=== PATIENT | female | born 1970 | race Caucasian/White ===

== ENCOUNTER 2016-08-01 19:42 | Inpatient (IN) | payer OTHER ==
[~2016-08-01] VITALS: Ht 172.7 cm; Wt 49.9 kg
[~2016-08-01 19:42] MED LIST: CLON0.2T12 PO; DIVA500T2 PO; HYDR-548 PO; LORA2TAB PO; PHEN100C4 PO; QUET25TA3 PO
[2016-08-01] MEDS ORDERED: HYDROMORPHONE 1 MG/1 ML DISP.SYRIN IV ONE (21:00)
[2016-08-01] MEDS ORDERED: HYDROMORPHONE 1 MG/1 ML DISP.SYRIN ONE ×2 (21:46→23:21)
[2016-08-01] MEDS ORDERED: DEXTROSE 50% 50 ML DISP.SYRIN IV ONE (22:00)
[2016-08-01] MEDS ORDERED: DEXTROSE 50% 50 ML DISP.SYRIN ONE (22:07)
[2016-08-01 22:20] LABS: PHENOBARBITAL 58.2 ug/mL (15.0-39.0)
[2016-08-01] MEDS ORDERED: diphenhydrAMINE 50 MG/1 ML VIAL IM ONE (22:30)
[2016-08-01] MEDS ORDERED: diphenhydrAMINE 50 MG/1 ML VIAL ONE (22:32)
[2016-08-01] MEDS ORDERED: HYDROMORPHONE 1 MG/1 ML DISP.SYRIN IM ONE (23:15)
[2016-08-02] MEDS ORDERED: HYDR8TAB2 PO (00:21)
[2016-08-02] MEDS ORDERED: CALC-20 PO (00:21)
[2016-08-02] MEDS ORDERED: PHEN60TA11 PO (00:21)
[2016-08-02] MEDS ORDERED: BACL10TA PO (00:21)
[2016-08-02] MEDS ORDERED: DOXY100C41 PO (00:21)
[2016-08-02] MEDS ORDERED: LACT10SO6 PO (00:21)
[2016-08-02] MEDS ORDERED: IV NS 1000 ML 1,000 ML IV PRN (00:56)
[2016-08-02] MEDS ORDERED: ONDANSETRON 4 MG/2 ML VIAL IV PRN (01:00)
[2016-08-02] MEDS ORDERED: HYDROMORPHONE 1 MG/1 ML DISP.SYRIN IV PRN (01:00)
[2016-08-02] MEDS ORDERED: Z GUARD REMEDY PASTE 57 GM TUBE TOP PRN (01:00)
[2016-08-02] MEDS ORDERED: HYDROCODONE/APAP 5-325MG TABLET PO PRN (01:00)
[2016-08-02] MEDS ORDERED: MAGNESIUM HYDROXIDE 30 ML LIQUID UDC PO PRN (01:00)
[2016-08-02] MEDS ORDERED: ACETAMINOPHEN 325 MG TABLET PO PRN (01:00)
[2016-08-02] MEDS ORDERED: Medication Not On Formulary EA (Lactulose 30 ML) PO PRN (01:15)
[2016-08-02 02:12] VITALS: BP 109/71
[2016-08-02 02:23] LABS: *BILIRUBIN,URIN NEGATIVE (NEGATIVE); *BLOOD, URINE NEGATIVE (NEGATIVE); *CLARITY,URINE SLIGHTLY CLOUDY (CLEAR); *COLOR,URINE YELLOW (YELLOW); *KETONES,URINE NEGATIVE (NEGATIVE); *PROTEIN,URINE NEGATIVE (NEGATIVE); *UROBILINOGEN,URINE 0.2 E.U./dl (NORMAL); LEUKOCYTE ESTERASE ,URINE NEGATIVE (NEGATIVE); NITRITE, URINE NEGATIVE (NEGATIVE); UGLUCOSE TRACE (NEGATIVE)
[2016-08-02 02:25] LABS: BACTERIA,URINE FEW /HPF (NONE SEEN); RBC,URINE 0-3 /HPF (0-3); SQUAMOUS EPITHELIAL CELL,UR FEW /HPF (NONE SEEN); WBC,URINE 0-3 /HPF (0-3)
[2016-08-02] MEDS ORDERED: HYDROMORPHONE 1 MG/1 ML DISP.SYRIN ONE (05:41)
[2016-08-02] MEDS ORDERED: PANTOPRAZOLE SODIUM 40 MG TABLET.DR PO SCH (07:00)
[2016-08-02] MEDS ORDERED: Medication Not On Formulary EA (Calcium Carbonate/Vitamin D3 (Calcium + D 600 Mg Tablet) PO SCH (09:00)
[2016-08-02] MEDS ORDERED: BACLOFEN 10 MG TABLET PO SCH (09:00)
[2016-08-02] MEDS ORDERED: PHENYTOIN SODIUM EXTENDED 100 MG CAPSULE.SA PO SCH (09:00)
[2016-08-02] MEDS ORDERED: DIVALPROEX 500 MG TABLET.DR PO SCH (09:00)
[2016-08-02] MEDS ORDERED: CLONIDINE HCL 0.2 MG TABLET PO SCH (09:00)
== END 2016-08-02 04:20 | disposition left against medical advice (07) | DRG 812 ==
LOC: ER 19:46 → TELE 08-02 01:16
PROVIDERS: ADMIT Contractor; ATTEND Contractor
DX: T42.3X1A Poisoning by barbiturates, accidental (unintentional), initial encounter (principal); E16.2 Hypoglycemia, unspecified; Y92.009 Unspecified place in unspecified non-institutional (private) residence as the place of occurrence of the external cause; G89.4 Chronic pain syndrome; Z85.43 Personal history of malignant neoplasm of ovary; Z85.841 Personal history of malignant neoplasm of brain; Z87.891 Personal history of nicotine dependence; Z92.21 Personal history of antineoplastic chemotherapy; M25.532 Pain in left wrist; M79.642 Pain in left hand; M54.9 Dorsalgia, unspecified; W05.0XXA Fall from non-moving wheelchair, initial encounter; Y93.9 Activity, unspecified; Y92.9 Unspecified place or not applicable
CPT/HCPCS: 36415; 71010; 72110; 73110; 73130; 80164; 80184; 85025; 87077; 87086; A4663; J1170; J1200; J3490

== ENCOUNTER 2016-08-17 09:11 | Emergency (ER) | payer MEDICAID, OTHER ==
[~2016-08-17] VITALS: Ht 172.7 cm; Wt 53.5 kg
[~2016-08-17 09:11] MED LIST changes: +BACL10TA PO; +CALC-20 PO; +DOXY100C41 PO; -HYDR-548 PO; +HYDR8TAB2 PO; +LACT10SO6 PO; -LORA2TAB PO; +PHEN60TA11 PO; -QUET25TA3 PO
--- NOTE | 2016-08-17 09:46 | NUR ---
dr negron at the bedside for eval and exam.
[2016-08-17] MEDS ORDERED: ONDANSETRON 4 MG/2 ML VIAL IV ONE (10:00)
[2016-08-17] MEDS ORDERED: HYDROMORPHONE 1 MG/1 ML DISP.SYRIN IV ONE ×2 (10:00→10:45)
[2016-08-17] MEDS ORDERED: IV NORMAL SALINE 1000 ML BAG IV ONE ×2 (10:00→11:30)
[2016-08-17 10:17] LABS: BASOPHILS % (AUTO) 0.2 % (0.0-2.0); EOSINOPHILS % (AUTO) 1.2 % (0.0-7.0); HEMATOCRIT 37.6 % (37-47); HEMOGLOBIN 12.2 G/DL (12.0-16.0); LYMPHOCYTES # (AUTO) 1.7 K/UL (0.8-4.8); LYMPHOCYTES % (AUTO) 45.5 % (20.5-51.5); MEAN CORPUSCULAR HEMOGLOBIN 29.4 UUG (27.0-31.0); MEAN CORPUSCULAR HGB CONC 33 g/dL (32.0-37.0); MEAN CORPUSCULAR VOLUME 90.5 FL (81.0-99.0); MONOCYTES # (AUTO) 0.5 K/UL (0.1-1.30); MONOCYTES % (AUTO) 12.3 % (0.0-11.0); NEUTROPHILS # (AUTO) 1.5 K/UL (1.8-8.9); NEUTROPHILS % (AUTO) 40.8 % (38.5-71.5); PLATELET COUNT (AUTO) 194 K/UL (150-450); RED BLOOD CELL COUNT(AUTO) 4.16 MIL/UL (4.2-5.4); RED CELL DISTRIBUTION WIDTH 13.9 % (11.5-14.5); WHITE BLOOD COUNT (AUTO) 3.7 K/UL (4.0-11.2)
[2016-08-17 10:22] LABS: CALCIUM 8.5 mg/dL (8.5-10.1); CARBON DIOXIDE 29 mmol/L (21-32); CHLORIDE 107 mmol/L (98-107); GFR > 130 mL/min (>60); GLUCOSE 103 mg/dL (74-106); POTASSIUM 4.8 mmol/L (3.5-5.1); SODIUM SERUM 144 mmol/L (136-145); UREA NITROGEN, BLOOD 9 mg/dL (7-18)
[2016-08-17 10:23] LABS: CREATININE 0.5 mg/dL (0.6-1.3)
[2016-08-17] MEDS ORDERED: ONDANSETRON 4 MG/2 ML VIAL ONE ×2 (10:24→10:47)
[2016-08-17] MEDS ORDERED: HYDROMORPHONE 2 MG/1 ML DISP.SYRIN ONE ×3 (10:24→12:10)
[2016-08-17 10:28] LABS: ALANINE AMINOTRANSFERASE 29 U/L (14-59); ALBUMIN 3.2 g/dL (3.4-5.0); ALKALINE PHOSPHATASE 79 U/L (50-136); ASPARTATE AMINOTRANSFERASE 23 U/L (15-37); BILIRUBIN,DIRECT 0.1 mg/dL (0.0-0.2); BILIRUBIN,TOTAL 0.2 mg/dL (0.2-1.0); TOTAL PROTEIN, SERUM 6.8 g/dL (6.4-8.2)
[2016-08-17] MEDS ORDERED: ONDANSETRON IV *ER 4 MG/2 ML VIAL IV ONE (10:45)
[2016-08-17 10:47] LABS: EOSINOPHILS % (MANUAL) 1 % (0-8); LYMPHOCYTES % (MANUAL) 49 % (20-40); MONOCYTES % (MANUAL) 8 % (2-10); NEUTROPHILS % (MANUAL) 42 % (42-75); PLATELET ESTIMATE ADEQUATE
[2016-08-17 10:56] LABS: PHENYTOIN (DILANTIN) 14.1 ug/mL (10.0-20.0)
[2016-08-17 11:05] LABS: VALPROIC ACID 18 ug/mL (50-100)
[2016-08-17 11:07] LABS: PHENOBARBITAL 43.7 ug/mL (15.0-39.0)
[2016-08-17] MEDS ORDERED: HYDROMORPHONE 1 MG/1 ML DISP.SYRIN IM ONE (11:30)
--- NOTE | 2016-08-17 12:22 | NUR ---
IV removed. Catheter intact and site benign. Pressure and 4x4 gauze applied to site. No bleeding noted.
--- NOTE | 2016-08-17 12:24 | NUR ---
Patient discharged to home in stable conditon. Written and verbal after care instructions given. Patient verbalizes understanding of instructions.
[2016-08-17 12:25] VITALS: BP 110/67
== END 2016-08-17 12:25 | disposition home or self-care (01) ==
LOC: ER 09:11
DX: Z00.00 Encounter for general adult medical examination without abnormal findings (principal); I10 Essential (primary) hypertension; G40.909 Epilepsy, unspecified, not intractable, without status epilepticus; C71.9 Malignant neoplasm of brain, unspecified; F17.200 Nicotine dependence, unspecified, uncomplicated; F31.9 Bipolar disorder, unspecified; Z88.0 Allergy status to penicillin; Z88.6 Allergy status to analgesic agent; Z88.8 Allergy status to other drugs, medicaments and biological substances
CPT/HCPCS: 80048; 80076; 80164; 80184; 80185; 85025; 85730; 96361; 96372; 96374; 96375; 99284; A4663; J1170 ×3; J2405 ×2; J7030 ×2

== ENCOUNTER 2016-08-19 16:04 | Emergency (ER) | payer MEDICAID ==
[~2016-08-19] VITALS: Ht 170.2 cm; Wt 53.5 kg
[2016-08-19] MEDS ORDERED: HYDROMORPHONE 1 MG/1 ML DISP.SYRIN IM ONE ×2 (16:30→17:45)
[2016-08-19] MEDS ORDERED: HYDROMORPHONE 2 MG/1 ML DISP.SYRIN ONE (16:41)
[2016-08-19 16:57] LABS: BASOPHILS % (AUTO) 0.4 % (0.0-2.0); EOSINOPHILS % (AUTO) 1.2 % (0.0-7.0); HEMATOCRIT 39.5 % (37-47); HEMOGLOBIN 12.7 G/DL (12.0-16.0); LYMPHOCYTES # (AUTO) 1.5 K/UL (0.8-4.8); LYMPHOCYTES % (AUTO) 44.5 % (20.5-51.5); MEAN CORPUSCULAR HEMOGLOBIN 28.9 UUG (27.0-31.0); MEAN CORPUSCULAR HGB CONC 32 g/dL (32.0-37.0); MEAN CORPUSCULAR VOLUME 89.8 FL (81.0-99.0); MONOCYTES # (AUTO) 0.3 K/UL (0.1-1.30); MONOCYTES % (AUTO) 9.4 % (0.0-11.0); NEUTROPHILS # (AUTO) 1.4 K/UL (1.8-8.9); NEUTROPHILS % (AUTO) 44.5 % (38.5-71.5); PLATELET COUNT (AUTO) 192 K/UL (150-450); RED CELL DISTRIBUTION WIDTH 13.4 % (11.5-14.5); WHITE BLOOD COUNT (AUTO) 3.2 K/UL (4.0-11.2)
[2016-08-19 17:07] LABS: CALCIUM 8.8 mg/dL (8.5-10.1); CARBON DIOXIDE 30 mmol/L (21-32); CHLORIDE 107 mmol/L (98-107); GFR > 130 mL/min (>60); GLUCOSE 94 mg/dL (74-106); SODIUM SERUM 142 mmol/L (136-145); UREA NITROGEN, BLOOD 8 mg/dL (7-18)
--- NOTE | 2016-08-19 17:13 | NUR ---
Patient is resting comfortably in bed with eyes closed, NAD noted.
[2016-08-19 17:20] LABS: CREATININE 0.5 mg/dL (0.6-1.3)
[2016-08-19 17:21] LABS: PHENYTOIN (DILANTIN) 7.3 ug/mL (10.0-20.0)
[2016-08-19 17:23] LABS: VALPROIC ACID 23 ug/mL (50-100)
[2016-08-19 17:24] LABS: PHENOBARBITAL 41.8 ug/mL (15.0-39.0)
[2016-08-19] MEDS ORDERED: PROMETHAZINE HCL 25 MG/1 ML VIAL IM ONE (17:45)
[2016-08-19 18:03] VITALS: BP 101/76
[2016-08-19] MEDS ORDERED: HYDROMORPHONE 1 MG/1 ML DISP.SYRIN ONE (18:06)
[2016-08-19] MEDS ORDERED: PROMETHAZINE HCL 25 MG/1 ML VIAL ONE (18:06)
== END 2016-08-19 18:06 | disposition home or self-care (01) ==
LOC: ER 16:04
DX: Z00.00 Encounter for general adult medical examination without abnormal findings (principal); R53.1 Weakness; F17.200 Nicotine dependence, unspecified, uncomplicated; F31.9 Bipolar disorder, unspecified; I10 Essential (primary) hypertension; G35 Multiple sclerosis; Z88.0 Allergy status to penicillin; Z88.6 Allergy status to analgesic agent; Z88.8 Allergy status to other drugs, medicaments and biological substances; Z90.710 Acquired absence of both cervix and uterus; Z85.41 Personal history of malignant neoplasm of cervix uteri
CPT/HCPCS: 36415; 80048; 80164; 80184; 80185; 85025; 96372 ×3; 99284; A4663; J1170 ×2; J2550

== ENCOUNTER 2016-08-23 20:44 | Emergency (ER) | payer MEDICAID ==
[~2016-08-23] VITALS: Ht 162.6 cm; Wt 54.4 kg
[~2016-08-23 20:44] MED LIST changes: +ATIVAN2 MG PO; -BACL10TA PO; +BACLOFEN10 MG PO; -CALC-20 PO; +CALCIUM + D 601 EACH PO; +CATAPRES0.2 MG PO; -CLON0.2T12 PO; +DEPAKOTE500 MG PO; +DILANTIN100 MG PO; +DILAUDID8 MG PO; -DIVA500T2 PO; -DOXY100C41 PO; +DOXYCYCLINE MO100 MG PO; -HYDR8TAB2 PO; -LACT10SO6 PO; +LACTULOSE10 GM/152 PO; +NORCO 10-325 T1 EACH PO; -PHEN100C4 PO; -PHEN60TA11 PO; +PHENOBARBITAL60 MG PO; +SEROQUEL PO
--- NOTE | 2016-08-23 21:30 | NUR ---
Patient brought into ER via wheelchair for right leg injury. Patient states hit right leg with car door this afternoon.
[2016-08-23] MEDS ORDERED: HYDROMORPHONE 1 MG/1 ML DISP.SYRIN IM ONE ×2 (21:45→22:15)
[2016-08-23] MEDS ORDERED: PROMETHAZINE HCL 25 MG/1 ML VIAL IM ONE ×2 (21:45→22:15)
[2016-08-23] MEDS ORDERED: PROMETHAZINE HCL 25 MG/1 ML VIAL ONE ×2 (21:52→22:28)
[2016-08-23] MEDS ORDERED: HYDROMORPHONE 1 MG/1 ML DISP.SYRIN ONE ×2 (21:52→22:28)
--- NOTE | 2016-08-23 22:37 | NUR ---
Patient discharged to home in stable conditon with taking Patient home. Written and verbal after care instructions given. Patient verbalizes understanding of instructions. Patient use wheelchair to be d/c'ed out of ER with
[2016-08-23 22:39] VITALS: BP 118/78; PULSE 72; RESP 18; O2SAT 99
== END 2016-08-23 22:40 | disposition home or self-care (01) ==
LOC: ER 20:49
DX: M25.561 Pain in right knee (principal); I10 Essential (primary) hypertension; F17.200 Nicotine dependence, unspecified, uncomplicated; F31.9 Bipolar disorder, unspecified; Z88.6 Allergy status to analgesic agent; Z88.0 Allergy status to penicillin; Z88.8 Allergy status to other drugs, medicaments and biological substances; Z90.710 Acquired absence of both cervix and uterus; Z85.41 Personal history of malignant neoplasm of cervix uteri
CPT/HCPCS: 73590; 73630; 96372 ×4; 99284; A4663; J1170 ×2; J2550 ×2

== ENCOUNTER 2016-08-26 19:23 | Emergency (ER) | payer MEDICAID ==
[~2016-08-26] VITALS: Ht 172.7 cm; Wt 49.9 kg
[~2016-08-26 19:23] MED LIST changes: -ATIVAN2 MG PO; +BACL10TA PO; -BACLOFEN10 MG PO; +CALC-20 PO; -CALCIUM + D 601 EACH PO; -CATAPRES0.2 MG PO; +CLON0.2T12 PO; -DEPAKOTE500 MG PO; -DILANTIN100 MG PO; -DILAUDID8 MG PO; +DIVA500T2 PO; +DOXY100C41 PO; -DOXYCYCLINE MO100 MG PO; +HYDR8TAB2 PO; +LACT10SO6 PO; -LACTULOSE10 GM/152 PO; -NORCO 10-325 T1 EACH PO; +PHEN100C4 PO; +PHEN60TA11 PO; -PHENOBARBITAL60 MG PO; -SEROQUEL PO
--- NOTE | 2016-08-26 20:15 | NUR ---
Pt to room c/o swelling to jaw and chronic pain. MD at bedside.
--- NOTE | 2016-08-26 20:26 | NUR ---
Pt decided to leave refusing to sign AMA. Pt disagreed with plan of care set forth by ED MD.
[2016-08-26 20:31] VITALS: BP 113/74
== END 2016-08-26 20:31 | disposition left against medical advice (07) ==
LOC: ER 19:30
DX: R13.10 Dysphagia, unspecified (principal); Z76.5 Malingerer [conscious simulation]; R22.9 Localized swelling, mass and lump, unspecified; F17.200 Nicotine dependence, unspecified, uncomplicated; F31.9 Bipolar disorder, unspecified; I10 Essential (primary) hypertension; Z88.6 Allergy status to analgesic agent; Z88.0 Allergy status to penicillin; Z88.8 Allergy status to other drugs, medicaments and biological substances
CPT/HCPCS: 99284; A4663

== ENCOUNTER 2016-08-29 21:05 | Emergency (ER) | payer MEDICAID ==
[~2016-08-29] VITALS: Ht 172.7 cm; Wt 49.9 kg
--- NOTE | 2016-08-29 21:25 | NUR ---
CALLED FOR PT NO ANSWER
--- NOTE | 2016-08-29 21:51 | NUR ---
Patient presents to ER c/o bi-lateral hand pain. Patient was noted to have two cloth wrappings around her forearms which she and her visitor state have been on tight for multiple days. Wrappings were removed, color returned to hands. To room 5B.
[2016-08-29] MEDS ORDERED: ONDANSETRON ODT 4 MG TAB.RAPDIS SL ONE (22:45)
[2016-08-29] MEDS ORDERED: ONDANSETRON ODT 4 MG TAB.RAPDIS ONE (22:55)
--- NOTE | 2016-08-29 23:36 | NUR ---
Patient eloped from facility. ER physician notified.
== END 2016-08-29 23:37 | disposition left against medical advice (07) ==
LOC: ER 21:10
DX: Z76.5 Malingerer [conscious simulation] (principal); R60.9 Edema, unspecified; M54.9 Dorsalgia, unspecified; R11.2 Nausea with vomiting, unspecified; I10 Essential (primary) hypertension; F31.9 Bipolar disorder, unspecified; F17.200 Nicotine dependence, unspecified, uncomplicated; Z88.0 Allergy status to penicillin; Z88.6 Allergy status to analgesic agent; Z88.8 Allergy status to other drugs, medicaments and biological substances; Z90.710 Acquired absence of both cervix and uterus
CPT/HCPCS: 36415; 80184; A4663; Q0162

== ENCOUNTER → 2016-09-09 | Emergency (ER) | payer MEDICAID ==
[~2016-09-09] MED LIST changes: +ONDA4TAB8 PO; +methylPREDNISolone SOD SUCC 125 MG/2 ML VIAL ONE
--- NOTE | 2016-09-09 21:10 | NUR ---
PT CALLED, NO SHOW...
--- NOTE | 2016-09-09 21:43 | NUR ---
2ND CALL, NO SHOW, NO ONE IN WAITING ROOM...
--- NOTE | 2016-09-09 21:44 | NUR ---
Patient left without being seen by ER physician.
== END | disposition left against medical advice (07) ==
LOC: ER 20:15
DX: Z53.21 Procedure and treatment not carried out due to patient leaving prior to being seen by health care provider (principal)
CPT/HCPCS: J2930

== ENCOUNTER 2016-09-10 20:13 | Emergency (ER) | payer MEDICAID ==
[~2016-09-10] VITALS: Ht 152.4 cm; Wt 55.3 kg
[~2016-09-10 20:13] MED LIST changes: -ONDA4TAB8 PO; -methylPREDNISolone SOD SUCC 125 MG/2 ML VIAL ONE
[2016-09-10] MEDS ORDERED: ONDA4TAB8 PO (20:26)
[2016-09-10] MEDS ORDERED: methylPREDNISolone SOD SUCC 125 MG/2 ML VIAL IM ONE (21:00)
--- NOTE | 2016-09-10 21:10 | NUR ---
Patient discharged to home in stable conditon. Written and verbal after care instructions given. Patient verbalizes understanding of instructions. Ambulated from ER with stable gait. All belongings with patient.
[2016-09-10 21:12] VITALS: BP 127/81
== END 2016-09-10 21:14 | disposition home or self-care (01) ==
LOC: ER 20:14
DX: R60.9 Edema, unspecified (principal); I10 Essential (primary) hypertension; F31.9 Bipolar disorder, unspecified; F17.200 Nicotine dependence, unspecified, uncomplicated; Z88.0 Allergy status to penicillin; Z88.6 Allergy status to analgesic agent; Z88.8 Allergy status to other drugs, medicaments and biological substances; Z85.41 Personal history of malignant neoplasm of cervix uteri; Z90.710 Acquired absence of both cervix and uterus
CPT/HCPCS: A4663; J2930

== ENCOUNTER 2016-09-12 16:14 | Emergency (ER) | payer MEDICAID ==
[~2016-09-12] VITALS: Ht 172.7 cm; Wt 56.7 kg
[~2016-09-12 16:14] MED LIST changes: -CLON0.2T12 PO; +ONDA4TAB8 PO
[2016-09-12] MEDS ORDERED: DEXAMETHASONE SOD PHOSPHATE 4 MG INJ IV ONE (16:45)
[2016-09-12] MEDS ORDERED: ONDANSETRON IV *ER 4 MG/2 ML VIAL IV ONE (17:00)
[2016-09-12] MEDS ORDERED: HYDROMORPHONE 1 MG/1 ML DISP.SYRIN IV ONE (17:00)
[2016-09-12] MEDS ORDERED: DEXAMETHASONE SOD PHOSPHATE 10 MG INJ ONE (17:15)
[2016-09-12] MEDS ORDERED: ONDANSETRON 4 MG/2 ML VIAL ONE (17:15)
[2016-09-12] MEDS ORDERED: HYDROMORPHONE 1 MG/1 ML DISP.SYRIN ONE (17:15)
[2016-09-12] MEDS ORDERED: HYDROMORPHONE 2 MG/1 ML DISP.SYRIN ONE ×2 (17:24→18:00)
--- NOTE | 2016-09-12 17:29 | NUR ---
Pt had allergic reaction to unknown source about 2 days ago, swelling in face, tongue, left elbow and left hand, and feet bilaterally. Pt also has abrasion on right elbow. Pt denies CP, dizziness, no other complaints, no distress noted.
[2016-09-12] MEDS ORDERED: HYDROMORPHONE 1 MG/1 ML DISP.SYRIN IM ONE (17:45)
--- NOTE | 2016-09-12 18:32 | NUR ---
Removed IV intact, site okay, bandaged. Gave pt RX and d/c instructions, verbalized understanding. Pt not driving.
== END 2016-09-12 17:42 | disposition home or self-care (01) ==
LOC: ER 16:17
DX: T78.3XXA Angioneurotic edema, initial encounter (principal); F17.200 Nicotine dependence, unspecified, uncomplicated; Z88.0 Allergy status to penicillin; Z88.5 Allergy status to narcotic agent; Z88.6 Allergy status to analgesic agent; Z88.8 Allergy status to other drugs, medicaments and biological substances; G89.4 Chronic pain syndrome; Z85.41 Personal history of malignant neoplasm of cervix uteri; I10 Essential (primary) hypertension; G40.909 Epilepsy, unspecified, not intractable, without status epilepticus
CPT/HCPCS: A4663; J1100; J1170; J2405

== ENCOUNTER 2016-09-20 13:49 | Emergency (ER) | payer MEDICAID ==
[~2016-09-20] VITALS: Ht 172.7 cm; Wt 56.7 kg
[2016-09-20] MEDS ORDERED: PRED20TA PO (14:03)
[2016-09-20] MEDS ORDERED: HYDROMORPHONE HCL 2 MG TABLET PO ONE (15:30)
--- NOTE | 2016-09-20 15:31 | NUR ---
During the H & P interview by Dr Perez, the patient expressed that she does not use the Dilaudid pills and this validated by the male significant other at bedside. Patient has 180 pills of dilaudid from Dr Weir-RX#[id number] filled last August. (please see Cures papers)
--- NOTE | 2016-09-20 15:58 | NUR ---
MSE COMPLETED, PT D/C'D HOME . ACI /REFERRALS GIVEN. PT TOOK ALL BELONGINGS, PT'S SIG OTHER PLACED PT ON THEIR WHEELCHAIR AND SIG TO DRIVE.
[2016-09-20 16:00] VITALS: BP 110/72
== END 2016-09-20 16:01 | disposition home or self-care (01) ==
LOC: ER 13:55
DX: J02.9 Acute pharyngitis, unspecified (principal); M25.521 Pain in right elbow; G89.29 Other chronic pain; I10 Essential (primary) hypertension; F31.9 Bipolar disorder, unspecified; F17.200 Nicotine dependence, unspecified, uncomplicated; Z88.6 Allergy status to analgesic agent; Z88.0 Allergy status to penicillin; Z88.8 Allergy status to other drugs, medicaments and biological substances; Z90.710 Acquired absence of both cervix and uterus
CPT/HCPCS: A4663

== ENCOUNTER 2016-09-22 18:56 | Emergency (ER) | payer MEDICAID, OTHER ==
[~2016-09-22] VITALS: Ht 172.7 cm; Wt 56.7 kg
[~2016-09-22 18:56] MED LIST changes: +PRED20TA PO
--- NOTE | 2016-09-22 19:25 | NUR ---
PATIENT COMES TO ER IN WHEELCHAIR, ACCOMPANIED BY , C/O RIGHT HAND SWELLING AND PAIN X1 DAY. ALSO C/O RIGHT ELBOW PAIN X 3 WEEKS, PT IS ALERT, ORIENTED X 4, NO RESP DISTRESS NOTED OR REPORTED UPON ASSESSMENT...MD AT BEDSIDE....
[2016-09-22] MEDS ORDERED: ONDANSETRON 4 MG/2 ML VIAL IM ONE ×2 (19:45→20:00)
[2016-09-22] MEDS ORDERED: DEXAMETHASONE SOD PHOSPHATE 4 MG INJ IM ONE (19:45)
[2016-09-22] MEDS ORDERED: HYDROMORPHONE 1 MG/1 ML DISP.SYRIN IM ONE ×2 (19:45→20:00)
[2016-09-22] MEDS ORDERED: ONDANSETRON 4 MG/2 ML VIAL ONE ×2 (19:52→20:29)
[2016-09-22] MEDS ORDERED: DEXAMETHASONE SOD PHOSPHATE 10 MG INJ ONE (19:52)
[2016-09-22] MEDS ORDERED: HYDROMORPHONE 2 MG/1 ML DISP.SYRIN ONE ×2 (19:52→20:29)
--- NOTE | 2016-09-22 20:28 | NUR ---
Patient discharged to home in stable conditon. Written and verbal after care instructions given. Patient verbalizes understanding of instructions. pt helped into wheelchair by , belongings at side....
[2016-09-22 20:29] VITALS: BP 107/59
== END 2016-09-22 20:30 | disposition home or self-care (01) ==
LOC: ER 19:12
DX: T78.3XXA Angioneurotic edema, initial encounter (principal); G89.29 Other chronic pain; I10 Essential (primary) hypertension; F17.200 Nicotine dependence, unspecified, uncomplicated; F31.9 Bipolar disorder, unspecified; Z85.41 Personal history of malignant neoplasm of cervix uteri; Z88.0 Allergy status to penicillin; Z88.6 Allergy status to analgesic agent; Z88.8 Allergy status to other drugs, medicaments and biological substances; Z90.710 Acquired absence of both cervix and uterus
CPT/HCPCS: A4663; J1100; J1170; J2405

== ENCOUNTER 2016-09-23 20:14 | Emergency (ER) | payer OTHER ==
[~2016-09-23] VITALS: Ht 172.7 cm; Wt 54.4 kg
--- NOTE | 2016-09-23 20:20 | NUR ---
PATIENT BROUGHT INTO ER BY FOR C/O BILATERAL HAND SWELLING/PAIN AND KNEE PAIN. PATIENT STATES WAS USING BATHROOM AND FELL. DENIES LOC. PT IS ALERT, ORIENTED X 3, NO RESP DISTRESS NOTED OR REPORTED UPON ASSESSMENT... MD AT BEDSIDE...
[2016-09-23] MEDS ORDERED: methylPREDNISolone SOD SUCC 125 MG/2 ML VIAL IV ONE (20:45)
[2016-09-23] MEDS ORDERED: HYDROMORPHONE 1 MG/1 ML DISP.SYRIN IV ONE (20:45)
[2016-09-23] MEDS ORDERED: IV NORMAL SALINE 1000 ML BAG IV ONE (20:45)
[2016-09-23] MEDS ORDERED: FAMOTIDINE. 20 MG/2 ML VIAL IV ONE ×2 (20:45→21:37)
[2016-09-23 20:57] LABS: BASOPHILS % (AUTO) 0.1 % (0.0-2.0); EOSINOPHILS % (AUTO) 0.5 % (0.0-7.0); HEMATOCRIT 37.3 % (37-47); HEMOGLOBIN 12.3 G/DL (12.0-16.0); LYMPHOCYTES # (AUTO) 2.7 K/UL (0.8-4.8); MEAN CORPUSCULAR HEMOGLOBIN 29.5 UUG (27.0-31.0); MEAN CORPUSCULAR HGB CONC 33 g/dL (32.0-37.0); MEAN CORPUSCULAR VOLUME 89.3 FL (81.0-99.0); MONOCYTES # (AUTO) 0.6 K/UL (0.1-1.30); NEUTROPHILS # (AUTO) 3.2 K/UL (1.8-8.9); NEUTROPHILS % (AUTO) 49.4 % (38.5-71.5); PLATELET COUNT (AUTO) 264 K/UL (150-450); RED BLOOD CELL COUNT(AUTO) 4.18 MIL/UL (4.2-5.4); WHITE BLOOD COUNT (AUTO) 6.5 K/UL (4.0-11.2)
[2016-09-23] MEDS ORDERED: diphenhydrAMINE 50 MG/1 ML VIAL IV ONE (21:00)
[2016-09-23 21:07] LABS: CARBON DIOXIDE 29 mmol/L (21-32); CHLORIDE 103 mmol/L (98-107); CREATININE 0.5 mg/dL (0.6-1.3); GLUCOSE 94 mg/dL (74-106); POTASSIUM 3.7 mmol/L (3.5-5.1); UREA NITROGEN, BLOOD 14 mg/dL (7-18)
[2016-09-23 21:13] LABS: ALANINE AMINOTRANSFERASE 31 U/L (14-59); ALKALINE PHOSPHATASE 54 U/L (50-136); ASPARTATE AMINOTRANSFERASE 18 U/L (15-37); BILIRUBIN,DIRECT 0.1 mg/dL (0.0-0.2); BILIRUBIN,TOTAL 0.2 mg/dL (0.2-1.0); TOTAL PROTEIN, SERUM 6.9 g/dL (6.4-8.2)
[2016-09-23] MEDS ORDERED: HYDROMORPHONE 1 MG/1 ML DISP.SYRIN ONE (21:37)
[2016-09-23] MEDS ORDERED: diphenhydrAMINE 50 MG/1 ML VIAL ONE (21:37)
[2016-09-23] MEDS ORDERED: methylPREDNISolone SOD SUCC 125 MG/2 ML VIAL ONE (21:37)
[2016-09-23] MEDS ORDERED: ONDANSETRON 4 MG/2 ML VIAL IV ONE (21:45)
[2016-09-23] MEDS ORDERED: ONDANSETRON 4 MG/2 ML VIAL ONE (21:50)
[2016-09-23] MEDS ORDERED: HYDROMORPHONE 1 MG/1 ML DISP.SYRIN IM ONE (23:00)
[2016-09-23] MEDS ORDERED: HYDROMORPHONE 2 MG/1 ML DISP.SYRIN ONE (23:13)
[2016-09-23] MEDS ORDERED: Medication Not On Formulary EA (Lactulose 30 ML) PO PRN (23:30)
[2016-09-23] MEDS ORDERED: ACETAMINOPHEN 325 MG TABLET PO PRN (23:45)
[2016-09-23] MEDS ORDERED: Z GUARD REMEDY PASTE 57 GM TUBE TOP PRN (23:45)
[2016-09-23] MEDS ORDERED: HYDROMORPHONE 1 MG/1 ML DISP.SYRIN IV PRN (23:45)
[2016-09-23] MEDS ORDERED: HYDROCODONE/APAP 5-325MG TABLET PO PRN (23:45)
[2016-09-23] MEDS ORDERED: MAGNESIUM HYDROXIDE 30 ML LIQUID UDC PO PRN (23:45)
[2016-09-23] MEDS ORDERED: ONDANSETRON 4 MG/2 ML VIAL IV PRN (23:45)
[2016-09-24] MEDS ORDERED: diphenhydrAMINE 50 MG/1 ML VIAL IV SCH
[2016-09-24] MEDS ORDERED: methylPREDNISolone SOD SUCC 40 MG/ML VIAL IV SCH
--- NOTE | 2016-09-24 00:05 | NUR ---
pt now refusing to be admitted, states she prefers to go home...
--- NOTE | 2016-09-24 01:13 | NUR ---
Patient discharged to home in stable conditon. Written and verbal after care instructions given. Patient verbalizes understanding of instructions. Pt exited ER in wheelchair, assisted by , as pt ambulates with wheelchair...
[2016-09-24 01:34] VITALS: BP 103/71
[2016-09-24] MEDS ORDERED: PANTOPRAZOLE SODIUM 40 MG TABLET.DR PO SCH (07:00)
[2016-09-24] MEDS ORDERED: Medication Not On Formulary EA (Calcium Carbonate/Vitamin D3 (Calcium + D 600 Mg Tablet) PO SCH (09:00)
[2016-09-24] MEDS ORDERED: PHENYTOIN SODIUM EXTENDED 100 MG CAPSULE.SA PO SCH (09:00)
[2016-09-24] MEDS ORDERED: DIVALPROEX 500 MG TABLET.DR PO SCH (09:00)
[2016-09-24] MEDS ORDERED: BACLOFEN 10 MG TABLET PO SCH (09:00)
== END 2016-09-24 01:35 | disposition home or self-care (01) ==
LOC: ER 20:34
DX: E86.0 Dehydration (principal); R60.9 Edema, unspecified; Z76.5 Malingerer [conscious simulation]; I10 Essential (primary) hypertension; F31.9 Bipolar disorder, unspecified; F17.200 Nicotine dependence, unspecified, uncomplicated; G35 Multiple sclerosis; Z88.0 Allergy status to penicillin; Z85.41 Personal history of malignant neoplasm of cervix uteri; Z88.6 Allergy status to analgesic agent; Z88.8 Allergy status to other drugs, medicaments and biological substances; Z90.710 Acquired absence of both cervix and uterus
CPT/HCPCS: 36415; 70360; 71010; 80048; 80076; 85025; 96361; 96372; 96374; 96375; 96376; 99285; A4663; J1170 ×2; J1200; J2405; J2930; J3490; J7030

== ENCOUNTER 2016-09-28 07:20 | Emergency (ER) | payer OTHER ==
[~2016-09-28] VITALS: Ht 172.7 cm; Wt 54.4 kg
--- NOTE | 2016-09-28 07:39 | NUR ---
DR GODFREY AT THE BEDSIDE FOR EVAL AND EXAM.
[2016-09-28] MEDS ORDERED: DEXAMETHASONE SOD PHOSPHATE 4 MG INJ IM ONE (07:45)
[2016-09-28] MEDS ORDERED: HYDROMORPHONE 1 MG/1 ML DISP.SYRIN IM ONE ×2 (07:45→08:00)
[2016-09-28] MEDS ORDERED: ONDANSETRON 4 MG/2 ML VIAL IM ONE ×2 (07:45→08:00)
[2016-09-28] MEDS ORDERED: ONDANSETRON 4 MG/2 ML VIAL ONE ×2 (07:59→08:51)
[2016-09-28] MEDS ORDERED: DEXAMETHASONE SOD PHOSPHATE 10 MG INJ ONE (07:59)
[2016-09-28] MEDS ORDERED: HYDROMORPHONE 2 MG/1 ML DISP.SYRIN ONE ×2 (07:59→08:51)
--- NOTE | 2016-09-28 08:09 | NUR ---
PT IS RESTING IN BED, SPEAKING W/ FAMILY. NAD NOTED. PT REQUESTED MORE PAIN AND NAUSEA MEDICATION TO BE GIVEN PRIOR TO DISCHARGE.
--- NOTE | 2016-09-28 08:48 | NUR ---
Patient discharged to home in stable conditon. Written and verbal after care instructions given. Patient verbalizes understanding of instructions.
[2016-09-28 08:49] VITALS: BP 112/70
== END 2016-09-28 08:50 | disposition home or self-care (01) ==
LOC: ER 07:20
DX: G89.29 Other chronic pain (principal); T78.3XXA Angioneurotic edema, initial encounter; M25.471 Effusion, right ankle; G35 Multiple sclerosis; I10 Essential (primary) hypertension; F17.200 Nicotine dependence, unspecified, uncomplicated; F31.9 Bipolar disorder, unspecified; Z90.710 Acquired absence of both cervix and uterus; Z88.0 Allergy status to penicillin; Z88.6 Allergy status to analgesic agent; Z88.8 Allergy status to other drugs, medicaments and biological substances; Z85.41 Personal history of malignant neoplasm of cervix uteri
CPT/HCPCS: 96372 ×5; 99284; A4663; J1100; J1170 ×2; J2405 ×2

== ENCOUNTER 2016-11-09 16:05 | Emergency (ER) | payer OTHER ==
[~2016-11-09] VITALS: Ht 172.7 cm; Wt 54.4 kg
--- NOTE | 2016-11-09 16:49 | NUR ---
PT IS IN ROOM #2A. DR HERRERA EVALUATED THE PT.
[2016-11-09 17:04] LABS: BASOPHILS % (AUTO) 0.6 % (0.0-2.0); HEMATOCRIT 38.3 % (37-47); HEMOGLOBIN 12.3 G/DL (12.0-16.0); LYMPHOCYTES # (AUTO) 1.2 K/UL (0.8-4.8); LYMPHOCYTES % (AUTO) 35.9 % (20.5-51.5); MEAN CORPUSCULAR HEMOGLOBIN 28.6 UUG (27.0-31.0); MEAN CORPUSCULAR HGB CONC 32 g/dL (32.0-37.0); MEAN CORPUSCULAR VOLUME 89.1 FL (81.0-99.0); MONOCYTES # (AUTO) 0.5 K/UL (0.1-1.30); MONOCYTES % (AUTO) 14.1 % (0.0-11.0); NEUTROPHILS # (AUTO) 1.6 K/UL (1.8-8.9); NEUTROPHILS % (AUTO) 48.4 % (38.5-71.5); PLATELET COUNT (AUTO) 251 K/UL (150-450); RED BLOOD CELL COUNT(AUTO) 4.29 MIL/UL (4.2-5.4); WHITE BLOOD COUNT (AUTO) 3.3 K/UL (4.0-11.2)
[2016-11-09 17:08] LABS: CARBON DIOXIDE 32 mmol/L (21-32); CHLORIDE 106 mmol/L (98-107); CREATININE 0.5 mg/dL (0.6-1.3); GLUCOSE 99 mg/dL (74-106); POTASSIUM 3.6 mmol/L (3.5-5.1); UREA NITROGEN, BLOOD 10 mg/dL (7-18)
[2016-11-09] MEDS ORDERED: HYDROMORPHONE 1 MG/1 ML DISP.SYRIN IM ONE (17:15)
[2016-11-09] MEDS ORDERED: ONDANSETRON ODT 4 MG TAB.RAPDIS SL ONE (17:15)
[2016-11-09 17:16] LABS: ETHANOL < 3 MG/DL (0-0)
[2016-11-09 17:21] LABS: ALANINE AMINOTRANSFERASE 22 U/L (14-59); ALKALINE PHOSPHATASE 68 U/L (50-136); ASPARTATE AMINOTRANSFERASE 22 U/L (15-37); BILIRUBIN,DIRECT < 0.1 mg/dL (0.0-0.2); BILIRUBIN,TOTAL 0.2 mg/dL (0.2-1.0); LIPASE 94 U/L (73-393)
[2016-11-09] MEDS ORDERED: ONDANSETRON 4 MG/2 ML VIAL ONE (17:29)
[2016-11-09] MEDS ORDERED: HYDROMORPHONE 1 MG/1 ML DISP.SYRIN ONE (17:29)
[2016-11-09] MEDS ORDERED: ONDANSETRON ODT 4 MG TAB.RAPDIS ONE (17:34)
[2016-11-09] MEDS ORDERED: HYDROMORPHONE HCL 2 MG TABLET PO ONE ×2 (18:00→18:30)
[2016-11-09] MEDS ORDERED: HYDROMORPHONE HCL 2 MG TABLET ONE ×3 (18:25→18:36)
[2016-11-09] MEDS ORDERED: CEFAZOLIN 1 G VIAL ONE (18:33)
[2016-11-09] MEDS ORDERED: ACETAMINOPHEN 325 MG TABLET ONE (18:33)
[2016-11-09] MEDS ORDERED: VANCOMYCIN IV 0 ML ONE (18:34)
[2016-11-09 18:54] VITALS: BP 128/88
--- NOTE | 2016-11-09 18:54 | NUR ---
PT WAS D/C TO HOME. D/C INSTRUCTIONS GIVEN TO THE PT.
== END 2016-11-09 18:55 | disposition home or self-care (01) ==
LOC: ER 16:08
DX: Z76.5 Malingerer [conscious simulation] (principal); F17.200 Nicotine dependence, unspecified, uncomplicated; Z88.0 Allergy status to penicillin; Z88.5 Allergy status to narcotic agent; Z88.6 Allergy status to analgesic agent
CPT/HCPCS: 36415; 83690; 84703; 85025; 85730; A4663; G0480; J0690; J1170; J2405; J3370; Q0162

== ENCOUNTER 2016-11-12 00:21 | Emergency (ER) | payer OTHER ==
[~2016-11-12] VITALS: Ht 172.7 cm; Wt 47.6 kg
[2016-11-12] MEDS: HYDROMORPHONE 1 MG/1 ML DISP.SYRIN IM ONE ×2 (00:45→01:30)
[2016-11-12] MEDS ORDERED: HYDROMORPHONE 2 MG/1 ML DISP.SYRIN ONE ×2 (00:53→01:40)
[2016-11-12] MEDS: ONDANSETRON 4 MG/2 ML VIAL IM ONE ×2 (01:00→01:30)
--- NOTE | 2016-11-12 01:00 | NUR ---
Pt to room via w/c for evaluation of left thumb pain s/p injuring with w/c. Pt seen by Dr. Jenkins. Pt medicated for discomfort, will monitor for effects of medication. Xray at bedside.
[2016-11-12] MEDS ORDERED: ONDANSETRON 4 MG/2 ML VIAL ONE ×2 (01:04→01:40)
--- NOTE | 2016-11-12 01:20 | NUR ---
Splint applied, pos CMS s/p application. Pt requesting more pain medication prior to discharge. aware.
--- NOTE | 2016-11-12 01:32 | NUR ---
Pt medicated for discomfort, will monitor for effects of medication.
--- NOTE | 2016-11-12 01:45 | NUR ---
Pt stable for discharge per Dr. Jenkins. Pt and family given ACI. Both verbalized understanding of dc instructions. Pt wheeled out of er via w/c with ride home.
[2016-11-12 01:53] VITALS: BP 130/84
== END 2016-11-12 01:46 | disposition home or self-care (01) ==
LOC: ER 00:24
DX: S62.512A Displaced fracture of proximal phalanx of left thumb, initial encounter for closed fracture (principal); F17.200 Nicotine dependence, unspecified, uncomplicated; I10 Essential (primary) hypertension; G35 Multiple sclerosis; Z88.0 Allergy status to penicillin; W18.30XA Fall on same level, unspecified, initial encounter; Y93.89 Activity, other specified; Y92.9 Unspecified place or not applicable; Y99.9 Unspecified external cause status
CPT/HCPCS: 29125; 73140; 96372 ×4; 99284; A4663; J1170 ×2; J2405 ×2

== ENCOUNTER 2016-11-12 19:41 | Emergency (ER) | payer OTHER ==
[~2016-11-12] VITALS: Ht 172.7 cm; Wt 47.6 kg
--- NOTE | 2016-11-12 20:17 | NUR ---
Pt to room via w/c. Pt c/o severe pain to L. thumb sts unable to control pain with home medications due to difficulty swallowing. Dr. Marquez at bedside for MSE
[2016-11-12] MEDS ORDERED: HYDROCODONE BIT/HOMATROPINE 5 ML UDC PO ONE (20:30)
[2016-11-12] MEDS ORDERED: DEXAMETHASONE SOD PHOSPHATE 4 MG INJ IM ONE (20:30)
--- NOTE | 2016-11-12 20:37 | NUR ---
Pt refused hydromet due to allergy. Dr. Marquez notified, awaiting further orders.
[2016-11-12] MEDS ORDERED: DEXAMETHASONE SOD PHOSPHATE 4 MG INJ ONE (20:40)
[2016-11-12] MEDS ORDERED: HYDROCODONE BIT/HOMATROPINE 5 ML UDC ONE (20:41)
[2016-11-12] MEDS ORDERED: HYDROMORPHONE HCL 2 MG TABLET PO ONE (20:45)
--- NOTE | 2016-11-12 20:58 | NUR ---
Pt stable for discharge per MD. Pt and family given ACI. Both verbalized understanding of dc instructions. Pt wheeled out of er via w/c with family to drive home.
[2016-11-12 21:00] VITALS: BP 115/73
[2016-11-12] MEDS ORDERED: HYDROMORPHONE HCL 2 MG TABLET ONE (21:01)
== END 2016-11-12 21:01 | disposition home or self-care (01) ==
LOC: ER 19:43
DX: S62.502A Fracture of unspecified phalanx of left thumb, initial encounter for closed fracture (principal); I10 Essential (primary) hypertension; F31.9 Bipolar disorder, unspecified; F17.200 Nicotine dependence, unspecified, uncomplicated; W05.0XXA Fall from non-moving wheelchair, initial encounter; Y93.89 Activity, other specified; Y99.8 Other external cause status; Y92.89 Other specified places as the place of occurrence of the external cause
CPT/HCPCS: 96372; 99283; A4663; J1100

== ENCOUNTER 2016-11-15 22:15 | Emergency (ER) | payer OTHER ==
[~2016-11-15] VITALS: Ht 172.7 cm; Wt 47.6 kg
[2016-11-16] MEDS ORDERED: HYDROMORPHONE HCL 2 MG TABLET PO ONE (00:15)
[2016-11-16] MEDS ORDERED: HYDROMORPHONE HCL 2 MG TABLET ONE ×2 (00:44→00:48)
[2016-11-16] MEDS ORDERED: ONDANSETRON IV *ER 4 MG/2 ML VIAL IM ONE (00:45)
[2016-11-16] MEDS ORDERED: ONDANSETRON 4 MG/2 ML VIAL ONE (00:57)
--- NOTE | 2016-11-16 01:15 | NUR ---
Patient discharged to home in stable conditon. Written and verbal after care instructions given. Patient verbalizes understanding of instructions.
== END 2016-11-16 01:17 | disposition home or self-care (01) ==
LOC: ER 22:15
DX: S62.522A Displaced fracture of distal phalanx of left thumb, initial encounter for closed fracture (principal); S62.512A Displaced fracture of proximal phalanx of left thumb, initial encounter for closed fracture; Z76.5 Malingerer [conscious simulation]; G40.909 Epilepsy, unspecified, not intractable, without status epilepticus; I10 Essential (primary) hypertension; F32.9 Major depressive disorder, single episode, unspecified; F17.200 Nicotine dependence, unspecified, uncomplicated; G89.29 Other chronic pain; Z88.6 Allergy status to analgesic agent; Z88.4 Allergy status to anesthetic agent; Z88.1 Allergy status to other antibiotic agents; Z88.5 Allergy status to narcotic agent; Z88.0 Allergy status to penicillin; Z88.8 Allergy status to other drugs, medicaments and biological substances; W18.2XXA Fall in (into) shower or empty bathtub, initial encounter; Y93.E1 Activity, personal bathing and showering; Y99.8 Other external cause status; Y92.091 Bathroom in other non-institutional residence as the place of occurrence of the external cause
CPT/HCPCS: 29125; 73110; 73130; 96372; 99284; A4663; J2405

== ENCOUNTER 2017-01-14 12:54 | Emergency (ER) | payer OTHER ==
[~2017-01-14] VITALS: Ht 172.7 cm; Wt 52.2 kg
[2017-01-14] MEDS ORDERED: FLEXERIL PO (13:21)
[2017-01-14] MEDS ORDERED: methylPREDNISolone SOD SUCC 40 MG/ML VIAL IM ONE (14:15)
[2017-01-14] MEDS ORDERED: HYDROMORPHONE HCL 2 MG TABLET PO ONE (14:15)
[2017-01-14] MEDS ORDERED: HYDROMORPHONE HCL 2 MG TABLET ONE (14:29)
[2017-01-14] MEDS ORDERED: methylPREDNISolone SOD SUCC 40 MG/ML VIAL ONE (14:30)
--- NOTE | 2017-01-14 14:37 | NUR ---
Pt was given 4 tabs of dilaudid = 8mg total and upon giving pt pills to swallow pt pushed pill in the side of her mouth and when I turned my back pt spit pills out into her hand and I ask her to open mouth and pills still in her mouth. Had to make pt take pills 4 different times with family member at bedside. Pt put pills under her tongue and in the sides of her mouth.
--- NOTE | 2017-01-14 15:12 | NUR ---
PT WAS D/C TO HOME. D/C INSTRUCTIONS GIVEN TO THE PT. PT DENIESPAIN. NO SOB. NO N/V.
[2017-01-14 15:14] VITALS: BP 141/88
== END 2017-01-14 15:15 | disposition home or self-care (01) ==
LOC: ER 12:55
DX: R60.0 Localized edema (principal); M21.331 Wrist drop, right wrist; Z76.5 Malingerer [conscious simulation]; I10 Essential (primary) hypertension; Z88.0 Allergy status to penicillin; G40.909 Epilepsy, unspecified, not intractable, without status epilepticus; F17.200 Nicotine dependence, unspecified, uncomplicated; W01.0XXA Fall on same level from slipping, tripping and stumbling without subsequent striking against object, initial encounter; Y93.89 Activity, other specified; Y92.9 Unspecified place or not applicable; Y99.9 Unspecified external cause status
CPT/HCPCS: 70360; 73130; A4663; J2920

== ENCOUNTER 2017-01-31 14:26 | Emergency (ER) | payer MEDICAID, OTHER ==
[~2017-01-31] VITALS: Ht 172.7 cm; Wt 54.4 kg
[~2017-01-31 14:26] MED LIST changes: -BACL10TA PO; +FLEXERIL PO; -LACT10SO6 PO
[2017-01-31] MEDS ORDERED: PRED20TA PO (14:36)
[2017-01-31] MEDS ORDERED: CLON0.2T PO (14:37)
[2017-01-31] MEDS ORDERED: QUET100T PO (14:37)
[2017-01-31] MEDS ORDERED: HYDROMORPHONE 1 MG/1 ML DISP.SYRIN IM ONE ×2 (15:30→17:38)
[2017-01-31] MEDS ORDERED: ONDANSETRON IV *ER 4 MG/2 ML VIAL IM ONE (15:45)
[2017-01-31] MEDS ORDERED: HYDROMORPHONE 2 MG/1 ML DISP.SYRIN ONE ×2 (15:49→17:56)
[2017-01-31] MEDS ORDERED: ONDANSETRON 4 MG/2 ML VIAL ONE (15:56)
[2017-01-31 18:07] VITALS: BP 109/69
== END 2017-01-31 18:11 | disposition home or self-care (01) ==
LOC: ER 14:26
DX: S66.911A Strain of unspecified muscle, fascia and tendon at wrist and hand level, right hand, initial encounter (principal); S60.229A Contusion of unspecified hand, initial encounter; Z88.0 Allergy status to penicillin; Z88.6 Allergy status to analgesic agent; Z88.8 Allergy status to other drugs, medicaments and biological substances; F17.200 Nicotine dependence, unspecified, uncomplicated; I10 Essential (primary) hypertension; G40.909 Epilepsy, unspecified, not intractable, without status epilepticus; X58.XXXA Exposure to other specified factors, initial encounter; Y93.01 Activity, walking, marching and hiking; Y92.89 Other specified places as the place of occurrence of the external cause; Y99.8 Other external cause status
CPT/HCPCS: 73100; 73120; 96372 ×2; 99284; A4663; J1170 ×2; J2405

== ENCOUNTER 2017-02-09 13:41 | Emergency (ER) | payer MEDICAID, OTHER ==
[~2017-02-09] VITALS: Ht 167.6 cm; Wt 54.4 kg
[~2017-02-09 13:41] MED LIST changes: +CLON0.2T PO; -DOXY100C41 PO; -FLEXERIL PO; +QUET100T PO
[2017-02-09] MEDS ORDERED: HYDROMORPHONE HCL 2 MG TABLET PO ONE (14:30)
[2017-02-09] MEDS ORDERED: HYDROMORPHONE HCL 2 MG TABLET ONE (14:50)
--- NOTE | 2017-02-09 15:04 | NUR ---
pt on floor with seizure looking like activity. per pt family member, pt laid down on the floor before seizure startwed, no trauma. asked for hellp. with coworkers help, placed the pt on the bed. purposeful movement of moving and adjusting self on the bed noticed. er md at the bedside when it happened.
--- NOTE | 2017-02-09 15:37 | NUR ---
Patient does not wish to proceed with medical care recommended by Dr. Kimberlee walsh). Patient given information related to possible complications, up to and including , which could occur as a result of leaving the hospital at this time. pt had a long discussion with er md. Patient refused to sign AMA form.
== END 2017-02-09 15:47 | disposition left against medical advice (07) ==
LOC: ER 13:41
DX: S63.418A Traumatic rupture of collateral ligament of other finger at metacarpophalangeal and interphalangeal joint, initial encounter (principal); F17.200 Nicotine dependence, unspecified, uncomplicated; I10 Essential (primary) hypertension; G89.29 Other chronic pain; G40.909 Epilepsy, unspecified, not intractable, without status epilepticus; Z88.0 Allergy status to penicillin; Z88.5 Allergy status to narcotic agent; Z88.6 Allergy status to analgesic agent; Z88.8 Allergy status to other drugs, medicaments and biological substances; W18.30XA Fall on same level, unspecified, initial encounter; Y93.89 Activity, other specified; Y92.89 Other specified places as the place of occurrence of the external cause; Y99.8 Other external cause status
CPT/HCPCS: 29125; 73130 ×2; 99284; A4663

== ENCOUNTER 2017-02-20 15:19 | Emergency (ER) | payer OTHER ==
[~2017-02-20] VITALS: Ht 172.7 cm; Wt 52.2 kg
--- NOTE | 2017-02-20 16:36 | NUR ---
Patient discharged to home in stable conditon with family. Written and verbal after care instructions given. Patient and family verbalizes understanding of instructions.
== END 2017-02-20 16:37 | disposition home or self-care (01) ==
LOC: ER 15:24
DX: S99.921A Unspecified injury of right foot, initial encounter (principal); G40.909 Epilepsy, unspecified, not intractable, without status epilepticus; I10 Essential (primary) hypertension; R13.10 Dysphagia, unspecified; Z76.5 Malingerer [conscious simulation]; Z88.0 Allergy status to penicillin; T78.3XXA Angioneurotic edema, initial encounter; X58.XXXA Exposure to other specified factors, initial encounter; Y93.89 Activity, other specified; Y92.89 Other specified places as the place of occurrence of the external cause; Y99.8 Other external cause status
CPT/HCPCS: 73630; 99284; A4663

== ENCOUNTER 2017-02-27 10:30 | Emergency (ER) | payer OTHER ==
[~2017-02-27] VITALS: Ht 172.7 cm; Wt 47.6 kg
--- NOTE | 2017-02-27 10:40 | NUR ---
Patient came into ER via wheelchair with significant other for c/o left ankle pain. Patient states yesterday she was trying to get into wheelchair and sprain left ankle
--- NOTE | 2017-02-27 10:45 | NUR ---
Dr Ladd into eval patient
[2017-02-27] MEDS: ONDANSETRON ODT 4 MG TAB.RAPDIS SL ONE (10:59)
--- NOTE | 2017-02-27 11:04 | NUR ---
Patient states "I can't tolerate the zofran under my tongue." Patient spit out pill in emesis bag. Requesting IM zofran
[2017-02-27] MEDS ORDERED: ONDANSETRON ODT 4 MG TAB.RAPDIS ONE (11:14)
[2017-02-27] MEDS: HYDROMORPHONE 1 MG/1 ML DISP.SYRIN IM ONE (11:38)
[2017-02-27] MEDS: ONDANSETRON 4 MG/2 ML VIAL IM ONE (11:38)
[2017-02-27] MEDS ORDERED: HYDROMORPHONE 2 MG/1 ML DISP.SYRIN ONE (11:48)
[2017-02-27] MEDS ORDERED: ONDANSETRON 4 MG/2 ML VIAL ONE (11:49)
[2017-02-27 12:09] VITALS: BP 115/85
--- NOTE | 2017-02-27 12:09 | NUR ---
Patient discharged to home in stable conditon with significant other taking patient home. Written and verbal after care instructions given. Patient verbalizes understanding of instructions.
== END 2017-02-27 12:13 | disposition home or self-care (01) ==
LOC: ER 10:30
DX: S93.402A Sprain of unspecified ligament of left ankle, initial encounter (principal); I10 Essential (primary) hypertension; G40.909 Epilepsy, unspecified, not intractable, without status epilepticus; Z88.0 Allergy status to penicillin; Z88.6 Allergy status to analgesic agent; F17.200 Nicotine dependence, unspecified, uncomplicated; W06.XXXA Fall from bed, initial encounter; Y93.89 Activity, other specified; Y92.89 Other specified places as the place of occurrence of the external cause; Y99.8 Other external cause status
CPT/HCPCS: 73600; 73620; 96372 ×2; 99284; A4663; J1170; J2405; Q0162

== ENCOUNTER 2017-03-05 21:11 | Emergency (ER) | payer OTHER ==
[~2017-03-05] VITALS: Ht 172.7 cm; Wt 47.6 kg
[2017-03-05] MEDS ORDERED: HYDROMORPHONE 1 MG/1 ML DISP.SYRIN IM ONE ×2 (21:45→22:15)
[2017-03-05] MEDS ORDERED: DIAZEPAM 10 MG/2 ML DISP.SYRIN IV ONE ×2 (21:45)
[2017-03-05] MEDS ORDERED: ONDANSETRON ODT 4 MG TAB.RAPDIS SL ONE (21:45)
[2017-03-05] MEDS ORDERED: DIAZEPAM 10 MG/2 ML DISP.SYRIN IM ONE (21:45)
[2017-03-05] MEDS ORDERED: HYDROMORPHONE 4 MG/1 ML DISP.SYRIN ONE ×2 (21:53→22:28)
--- NOTE | 2017-03-05 21:59 | NUR ---
Patient refused zofran ODT. Requesting IM
[2017-03-05] MEDS ORDERED: ONDANSETRON 4 MG/2 ML VIAL IM ONE (22:00)
[2017-03-05] MEDS ORDERED: ONDANSETRON ODT 4 MG TAB.RAPDIS ONE (22:06)
[2017-03-05] MEDS ORDERED: ONDANSETRON 4 MG/2 ML VIAL ONE (22:09)
--- NOTE | 2017-03-05 22:40 | NUR ---
PATIENT ABLE TO STRAIGHTEN RIGHT ARM TO APPLY RIGHT ARM COLLE ORDERED
--- NOTE | 2017-03-05 22:48 | NUR ---
Patient discharged to home in stable conditon WITH FAMILY TAKING PATIENT HOME. Written and verbal after care instructions given. Patient verbalizes understanding of instructions.
[2017-03-05 22:49] VITALS: BP 140/84
== END 2017-03-05 22:52 | disposition home or self-care (01) ==
LOC: ER 21:18
DX: M25.531 Pain in right wrist (principal); G89.29 Other chronic pain; F17.200 Nicotine dependence, unspecified, uncomplicated; G35 Multiple sclerosis; G40.909 Epilepsy, unspecified, not intractable, without status epilepticus; Z88.0 Allergy status to penicillin; I10 Essential (primary) hypertension
CPT/HCPCS: A4663; J1170; J2405; J3360; Q0162

== ENCOUNTER 2017-03-07 21:47 | Emergency (ER) | payer OTHER ==
[~2017-03-07] VITALS: Ht 172.7 cm; Wt 47.6 kg
--- NOTE | 2017-03-07 23:30 | NUR ---
Pt c/o being unable to swallow her medications. Also c/o numbness and not able to move right hand x 2 days. Cap refill < 2 sec. Pt denies CP, SOB, dizziness, n/v, no other complaints, no distress noted.
--- NOTE | 2017-03-07 23:54 | NUR ---
Pt refused wrist splint. Gave pt d/c instructions, verbalized understanding.
== END 2017-03-07 23:59 | disposition home or self-care (01) ==
LOC: ER 21:48
DX: T78.3XXA Angioneurotic edema, initial encounter (principal); Z76.5 Malingerer [conscious simulation]; G35 Multiple sclerosis; G40.909 Epilepsy, unspecified, not intractable, without status epilepticus; G89.29 Other chronic pain; I10 Essential (primary) hypertension; R13.10 Dysphagia, unspecified; Z88.0 Allergy status to penicillin; F17.200 Nicotine dependence, unspecified, uncomplicated; Z88.8 Allergy status to other drugs, medicaments and biological substances
CPT/HCPCS: A4663

== ENCOUNTER 2017-04-19 21:24 | Emergency (ER) | payer OTHER ==
--- NOTE | 2017-04-19 21:45 | NUR ---
PT DECIDED NOT TO BE SEEN.LWBT
== END 2017-04-19 21:47 | disposition left against medical advice (07) ==
LOC: ER 21:24
DX: Z53.21 Procedure and treatment not carried out due to patient leaving prior to being seen by health care provider (principal)

== ENCOUNTER 2017-04-24 16:08 | Emergency (ER) | payer OTHER ==
[~2017-04-24] VITALS: Ht 172.7 cm; Wt 56.7 kg
--- NOTE | 2017-04-24 16:20 | NUR ---
DR RHODES AT [facility] PATIENT WAS SEEN AND EVAL DONE.
[2017-04-24] MEDS ORDERED: ONDANSETRON ODT 4 MG TAB.RAPDIS SL ONE (16:30)
--- NOTE | 2017-04-24 16:55 | NUR ---
Patient discharged to home in stable conditon her own wc. Written and verbal after care instructions given. Patient refused to sign DC instructions. Patient and fiance went to nurse continuously insisting the DR that she needs narcotics that it is the only things that brittny help with her pain. Patient's fiance started getting loud and threatening staff. stephanie cuellar called. Patient verbalized understanding of instructions but did not want medications RX give states she has her own will rather will take her own medications. All belongings was given by security.
[2017-04-24] MEDS ORDERED: ONDANSETRON ODT 4 MG TAB.RAPDIS ONE (16:56)
== END 2017-04-24 16:55 | disposition home or self-care (01) ==
LOC: ER 16:08
DX: G89.29 Other chronic pain (principal); H66.92 Otitis media, unspecified, left ear; G35 Multiple sclerosis; I10 Essential (primary) hypertension; Z88.0 Allergy status to penicillin; Z88.5 Allergy status to narcotic agent; F17.200 Nicotine dependence, unspecified, uncomplicated; G40.909 Epilepsy, unspecified, not intractable, without status epilepticus
CPT/HCPCS: A4663; Q0162

== ENCOUNTER 2017-06-27 20:08 | Emergency (ER) | payer OTHER ==
--- NOTE | 2017-06-27 20:16 | NUR ---
WENT TO BRING PT BACK FOR TRIAGE.WHEN HER AND HER FRIEND SAW THE DR,THEY DECIDED NOT TO BE SEEN.LWBT
== END 2017-06-27 20:18 | disposition left against medical advice (07) ==
LOC: ER 20:08
DX: Z53.21 Procedure and treatment not carried out due to patient leaving prior to being seen by health care provider (principal)